=== PATIENT | female | born 1990 | race Caucasian/White ===

== ENCOUNTER 2016-09-17 06:59 | Emergency (ER) | payer OTHER ==
[~2016-09-17] VITALS: Ht 152.4 cm; Wt 90.7 kg
[2016-09-17 08:20] LABS: BILIRUBIN,URINE NEGATIVE (NEG); GLUCOSE,URINE NEGATIVE (NEG); NITRITE,URINE NEGATIVE (NEG); PH,URINE 6.5; PROTEIN,URINE NEGATIVE (NEG-TRACE); UROBILINOGEN,URINE 0.2 mg/dL (0.2 mg/dL)
--- NOTE | 2016-09-17 08:32 | PHYS DOC ---
Past Medical History Past Medical History: No Pertinent History Past Surgical History: , Other Additional Past Surgical Histo: D&C Alcohol Use: Occasionally Drug Use: None Adult General Chief Complaint Chief Complaint: PAIN ON URINATION HPI HPI Patient is a 26 year old female who presents with dysuria. Patient reports 2 day history of burning pain with urination. She reports frequency & urgency. She denies fevers/chills, nausea/vomiting, abdominal pain, flank pain, hematuria , vaginal discharge. Reports she is currently having her menstrual period. She also states she feels that the skin around her anus is raw & painful. Review of Systems Review of Systems Constitutional: Denies fever or chills HENT: Denies nasal congestion or sore throat Respiratory: Denies cough or shortness of breath Cardiovascular: Denies chest pain GI: Denies abdominal pain, nausea, vomiting, or diarrhea : Reports dysuria, denies hematuria Musculoskeletal: Denies back pain or joint pain Integument: Denies rash or skin lesions Neurologic: Denies headache Physical Exam Physical Exam Constitutional: obese, no acute distress, non-toxic appearance. HENT: Normocephalic, atraumatic, bilateral external ears normal, oropharynx moist, nose normal. Eyes: conjunctiva normal, no discharge. Neck: supple, no stridor. Cardiovascular: no edema. Lungs & Thorax: no respiratory distress. Abdomen: soft, nontender, no rebound/guarding, no masses or pulsatile masses, nondistended. Rectal: no hemorrhoid or fissure seen, skin surrounding the anus is slightly erythematous, no cellulitis or fluctuance/induration. Skin: Warm, dry, no erythema, no rash. Back: No CVA tenderness. Extremities: No tenderness, no edema. Neurologic: Alert and oriented X 3 Current Patient Data Vital Signs Vital Signs Date Time Temp Pulse Resp B/P Pulse Ox O2 Delivery O2 Flow Rate FiO2 09/17/16 09:39 94 18 113/66 97 Room Air 09/17/16 07:40 99 99.0 Lab Values Laboratory Tests Test 09/17/16 06:48 09/17/16 07:50 POC Urine HCG, Qualitative Hcg negative (Negative) Urine Collection Type Void Urine Color Yellow Urine Clarity Clear Urine pH 6.5 Urine Specific [place] 1.020 Urine Protein Negativemg/dL (NEG-TRACE) Urine Glucose (UA) Negativemg/dL (NEG) Urine Ketones (Stick) Negativemg/dL (NEG) Urine Blood Moderate (NEG) Urine Nitrite Negative (NEG) Urine Bilirubin Negative (NEG) Urine Urobilinogen Dipstick 0.2mg/dL (0.2 mg/dL) Urine Leukocyte Esterase Moderate (NEG) Urine RBC 1-2/HPF (0-2) Urine WBC 11-20/HPF (0-4) Urine Squamous Epithelial Cells Few/LPF Urine Bacteria Few/HPF (0-FEW) Urine Mucus Marked/LPF EKG EKG [] Radiology/Procedures Radiology/Procedures [] Course & Med Decision Making Course & Med Decision Making Pertinent Labs and Imaging studies reviewed. (See chart for details) The patient presents with dysuria. UA consistent with UTI. She had elevated heart rate upon arrival, resting comfortably with heart rate of 94 at time of my exam. Afebrile. No abdominal or flank pain. Gave prescription for cipro for UTI. No evidence of hemorrhoid, fissure, abscess on rectal exam. Gave prescription for recticare. Recommend sitz baths. Follow up as needed with Dr. Bob in primary care clinic in 2-3 days. Come back for high fever, severe abdominal pain or flank pain, uncontrolled vomiting, any otherwise worsening condition. Discharged home in stable condition. [] Dragon Disclaimer Dragon Disclaimer This electronic medical record was generated, in whole or in part, using a voice recognition dictation system. Departure Departure Impression: Primary Impression: Urinary tract infection Additional Impression: Anal or rectal pain Disposition: 01 HOME, SELF-CARE Condition: STABLE Referrals: NO PCP (PCP) BIJAN BOB MD Patient Instructions: Urinary Tract Infection, [id number] Additional Instructions: You were seen in the emergency department today for urinary tract infection. Please take the prescribed antibiotic. Use the medication for rectal pain & soak in a warm tub. Consider using baby wipes. Follow up with Dr. Bob in the primary care clinic for additional concerns. Come back for high fever, severe pain, uncontrolled vomiting, any otherwise worsening condition. Scripts Lidocaine (Recticare)30 Gm Cream..g.30 Gm TP BID #1 Prov:TERESO GONZALEZ MD 09/17/16 Ciprofloxacin Hcl (Cipro)500 Mg [id number] Mg PO BID #6 TAB Ref 0 Prov:TERESO GONZALEZ MD 09/17/16 Problem Qualifiers TERESO GONZALEZ MD Sep 17, 2016 08:32
[2016-09-17 08:41] LABS: BACTERIA,URINE FEW /HPF (0-FEW); SQUAMOUS EPITHELIAL CELL,UR FEW /LPF
[2016-09-17] MEDS ORDERED: LIDO30CR6 TP (09:33)
[2016-09-17] MEDS ORDERED: CIPR500T94 PO (09:33)
[2016-09-17 09:39] VITALS: BP 113/66
== END 2016-09-17 09:55 | disposition home or self-care (01) ==
LOC: ER 06:59
DX: N39.0 Urinary tract infection, site not specified (principal); K62.89 Other specified diseases of anus and rectum
CPT/HCPCS: 81001; 81025; 87086; 87186; 99284

== ENCOUNTER 2018-07-14 20:30 | Emergency (ER) | payer SELFPAY ==
[~2018-07-14] VITALS: Ht 154.9 cm; Wt 104.3 kg
[~2018-07-14 20:30] MED LIST: CIPR500T94 PO; LIDO30CR6 TP
[2018-07-14 20:42] VITALS: BP 130/87
[2018-07-14] MEDS ORDERED: AMOX500C PO (21:09)
--- NOTE | 2018-07-14 21:09 | PHYS DOC ---
Past Medical History Past Medical History: No Pertinent History Past Surgical History: , Other Additional Past Surgical Histo: D&C Alcohol Use: Occasionally Drug Use: None Adult General Chief Complaint Chief Complaint: EARACHE/EAR PAIN HPI HPI Patient is a 28 year old female who presents with nasal congestion for the last 1 week. Patient states today she felt her right ear pop and ever since she' s had extreme pain in the right ear. She rates her pain a 9 out of 10. Review of Systems Review of Systems Constitutional: Denies fever or chills [] Eyes: Denies change in visual acuity, redness, or eye pain [] HENT: Denies nasal congestion or sore throat [] Respiratory: Denies cough or shortness of breath [] Cardiovascular: No additional information not addressed in HPI [] GI: Denies abdominal pain, nausea, vomiting, bloody stools or diarrhea [] : Denies dysuria or hematuria [] Musculoskeletal: Denies back pain or joint pain [] Integument: Denies rash or skin lesions [] Neurologic: Denies headache, focal weakness or sensory changes [] Endocrine: Denies polyuria or polydipsia [] All other systems were reviewed and found to be within normal limits, except as documented in this note. Physical Exam Physical Exam Constitutional: Well developed, well nourished, no acute distress, non-toxic appearance. [] HENT: Normocephalic, atraumatic, bilateral external ears normal, oropharynx moist, no oral exudates, nose normal. [] Eyes: PERRLA, EOMI, conjunctiva normal, no discharge. [] Neck: Normal range of motion, no tenderness, supple, no stridor. [] Cardiovascular:Heart rate regular rhythm, no murmur [] Lungs & Thorax: Bilateral breath sounds clear to auscultation [] Abdomen: Bowel sounds normal, soft, no tenderness, no masses, no pulsatile masses. [] Skin: Warm, dry, no erythema, no rash. [] Back: No tenderness, no CVA tenderness. [] Extremities: No tenderness, no cyanosis, no clubbing, ROM intact, no edema. [] Neurologic: Alert and oriented X 3, normal motor function, normal sensory function, no focal deficits noted. [] Psychologic: Affect normal, judgement normal, mood normal. [] Current Patient Data Vital Signs Vital Signs Date Time Temp Pulse Resp B/P (MAP) Pulse Ox O2 Delivery O2 Flow Rate FiO2 07/14/18 20:42 98.2 100 18 130/87 (101) 99 Room Air 98.2 EKG EKG [] Radiology/Procedures Radiology/Procedures [] Course & Med Decision Making Course & Med Decision Making Patient is a 28 year old female who presents with nasal congestion for the last 1 week. Patient states today she felt her right ear pop and ever since she' s had extreme pain in the right ear. She rates her pain a 9 out of 10. Patient denies any other symptoms. Patient denies fever or other cold symptoms. Right ear tympanic membrane is reddened. Afebrile. Alert and oriented. Patient's membranes are moist. Skin pink warm and dry. Lungs are clear to auscultation all lobes. Patient denies abdominal pain, nausea, vomiting, diarrhea, fever. Patient we treated with antibiotic and she can take Tylenol or ibuprofen for pain control. Dragon Disclaimer Dragon Disclaimer This electronic medical record was generated, in whole or in part, using a voice recognition dictation system. Departure Departure Impression: Primary Impression: Otitis media Disposition: HOME, SELF-CARE Condition: STABLE Referrals: NO PCP (PCP) Patient Instructions: Otitis Media, Adult Additional Instructions: Follow-up with primary care doctor on Tuesday. Take medications as prescribed. Take ibuprofen and Tylenol for pain. Scripts Amoxicillin (AMOXICILLIN) 500 Mg Capsule 1 CAP PO BID for 10 Days, #20 CAP Prov: GAUDENCIO FORTUNE [employer]GRAM MANAGER 07/14/18 Problem Qualifiers Primary Impression: Otitis media Otitis media type: unspecified Laterality: right Qualified Codes: H66.91 - Otitis media, unspecified, right ear GAUDENCIO FORTUNE [employer] PROGRAM MANAGER Jul 14, 2018 21:09
== END 2018-07-14 21:14 | disposition home or self-care (01) ==
LOC: ER 20:30
DX: H66.91 Otitis media, unspecified, right ear (principal); R09.81 Nasal congestion; Z98.890 Other specified postprocedural states
CPT/HCPCS: 99283

== ENCOUNTER 2019-04-12 11:30 | Emergency (ER) | payer SELFPAY ==
[~2019-04-12] VITALS: Ht 154.9 cm; Wt 104.3 kg
[~2019-04-12 11:30] MED LIST changes: +AMOX500C PO
[2019-04-12 11:50] VITALS: BP 148/91
[2019-04-12] MEDS ORDERED: AMOX500C PO (12:05)
--- NOTE | 2019-04-12 12:05 | PHYS DOC ---
Past Medical History Past Medical History: No Pertinent History Past Surgical History: , Other Additional Past Surgical Histo: D&C Alcohol Use: Occasionally Drug Use: None Adult General Chief Complaint Chief Complaint: SORE THROAT HPI HPI Patient is a 28 year old female who presents with complaining of sore throat. Patient complaining of sore throat for the last 3 days as a constant pain that getting worse with swallowing. Patient states she had a fever of 100 yesterday, cough and congestion, vomiting and diarrhea. 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 Patient states she gets frequent episodes of strep pharyngitis. Review of Systems Review of Systems Constitutional: Reports fever Eyes: Denies change in visual acuity, redness, or eye pain [] HENT: Denies nasal congestion, reports sore throat [] Respiratory: Denies cough or shortness of breath [] Cardiovascular: No additional information not addressed in HPI [] GI: Denies abdominal pain, nausea, vomiting, bloody stools or diarrhea [] : Denies dysuria or hematuria [] Musculoskeletal: Denies back pain or joint pain [] Integument: Denies rash or skin lesions [] Neurologic: Denies headache, focal weakness or sensory changes [] Endocrine: Denies polyuria or polydipsia [] All other systems were reviewed and found to be within normal limits, except as documented in this note. Allergies Allergies Allergies Coded Allergies Type Severity Reaction Last Updated Verified No Known Drug Allergies 04/12/19 No Physical Exam Physical Exam Constitutional: Well developed, well nourished, mild distress, non-toxic appearance afebrile. [] HENT: Normocephalic, atraumatic, bilateral external ears normal, oropharynx [address], bilateral tonsillar enlargement with exudates, nose normal. [] Eyes: PERRLA, EOMI, conjunctiva normal, no discharge. [] Neck: Normal range of motion, no tenderness, supple, no stridor. [] Cardiovascular:Heart rate regular rhythm, no murmur [] Lungs & Thorax: Bilateral breath sounds clear to auscultation [] Skin: Warm, dry, no erythema, no rash. [] Extremities: No tenderness, no cyanosis, no clubbing, ROM intact, no edema. [] Neurologic: Alert and oriented X 3, normal motor function, normal sensory function, no focal deficits noted. [] Psychologic: Affect normal, judgement normal, mood normal. [] Current Patient Data Vital Signs Vital Signs Date Time Temp Pulse Resp B/P (MAP) Pulse Ox O2 Delivery O2 Flow Rate FiO2 04/12/19 11:50 98.4 92 20 148/91 (110) 97 Room Air 98.4 EKG EKG [] Radiology/Procedures Radiology/Procedures [] Course & Med Decision Making Course & Med Decision Making Evaluation of patient in ER showed 28-year-old male patient with complaining of sore throat and fever. Patient was afebrile in ER. Patient had sick contacts at work. Patient had tonsillar enlargement with exudate but did not want to have a strep test. Plan discharge patient home with diagnosis of acute pharyngitis and prescription of amoxicillin. Dragon Disclaimer Dragon Disclaimer This electronic medical record was generated, in whole or in part, using a voice recognition dictation system. Departure Departure Impression: Primary Impression: Acute pharyngitis Disposition: HOME, SELF-CARE (at 1202) Condition: STABLE Referrals: NO PCP (PCP) Patient Instructions: Viral and Bacterial Pharyngitis Additional Instructions: Drink plenty of liquids Follow-up with your primary care physician in 3-5 days Return to ER if not getting better Take alternate Tylenol and ibuprofen as needed for fever and pain Scripts Amoxicillin (AMOXICILLIN) 500 Mg Capsule 1 CAP PO [id number] for infection, #30 CAP Prov: CAROLE FLORES MD 04/12/19 Problem Qualifiers Primary Impression: Acute pharyngitis Pharyngitis/tonsillitis etiology: unspecified etiology Qualified Codes: J02.9 - Acute pharyngitis, unspecified CAROLE FLORES MD Apr 12, 2019 12:05
== END 2019-04-12 12:19 | disposition home or self-care (01) ==
LOC: ER 11:30
DX: J02.9 Acute pharyngitis, unspecified (principal); R11.10 Vomiting, unspecified; R19.7 Diarrhea, unspecified
CPT/HCPCS: 99283